=== PATIENT | female | born 1945 | race Two or more races ===

== ENCOUNTER → 2016-06-02 | Day surgery (SDC) | payer MEDICARE, OTHER ==
--- NOTE | 2016-06-01 10:02 | Pre-Procedure Note/Attestation ---
Pre-Procedure Note/Attestation Complete Prior to Procedure Planned Procedure: right Procedure Narrative: 1.CATARACT EXTRACTION WITH PHACO AND PC IOL IMPLANTATION, RIGHT EYE. Indications for Procedure Pre-Operative Diagnosis: 1. CATARACT, RIGHT EYE. Attestation I attest that I discussed the nature of the procedure; its benefits; risks and complications; and alternatives (and the risks and benefits of such alternatives ), prior to the procedure, with the patient (or the patient's legal construction representative). I attest that, if there was a reasonable possibility of needing a blood transfusion, the patient (or the patient's legal construction representative) was given the [facility] standardized written summary, pursuant to the Romario Andrei Blood Safety Act ([place] Health and Safety Code # 1645, as amended). I attest that I re-evaluated the patient just prior to the surgery and that there has been no change in the patient's H&P, except as documented below: TAVO PINEDA Jun 01, 2016 10:02
[~2016-06-02] VITALS: Ht 160 cm; Wt 79.4 kg
[2016-06-02] VITALS (9 sets, daily range): BP systolic 114–150; BP diastolic 57–74
[~2016-06-02] MED LIST: Akten 3.5% 1ml Btl ONE; BSS 15ml BTL ONE; BSS 500ml btl ONE; Carbachol 0.01% Op Soln 1.5ml vial ONE; Dexamethasone 4mg/ml vial ONE; Diclofenac Sod 0.1% Op Soln ONE; DiphenhydrAMINE 50mg/ml Inj IVP PRN; DiphenhydrAMINE 50mg/ml Inj ONE; EPINEPHrine 1mg/1ml Amp ONE; GLUCOSAMINE1000 M1 PO; Gatifloxacin Opth Solution 0.5% ONE; LEVOTHYROXINE100 MCG ORAL; LORAZEPAM1 MG ORAL; LR 1000ml 1,000 ML IVLG SCH; LR 1000ml ONE; Labetalol 5mg/ml 20ml vial IV PRN; Lidocaine 1% MPF 10mg/ml 5ml ONE; NS Irrig 1000ml ONE; Phenylephrine 10% Opth Soln 5ml ONE; Povidone-Iodine 5% opth solution ONE; Sodium Hyaluronate 10 mg/ml 0.85ml ONE; Sterile Water Irrig 1000ml IRRIG ONE; Tetracaine 0.5% Opth Soln ONE; Tropicamide 1% Opth Soln ONE; acetaZOLAMIDE 125mg tab ORAL ONE; fentaNYL 100 mcg/2 mL IV ONE
[2016-06-02] MEDS: Gatifloxacin Opth Solution 0.5% RIGHT EYE SCH ×3 (06:49→07:06)
[2016-06-02] MEDS: Diclofenac Sod 0.1% Op Soln RIGHT EYE SCH ×3 (06:49→07:06)
[2016-06-02] MEDS: Phenylephrine 10% Opth Soln 5ml RIGHT EYE SCH ×3 (06:49→07:06)
[2016-06-02] MEDS: Tropicamide 1% Opth Soln RIGHT EYE SCH ×3 (06:49→07:06)
[2016-06-02] MEDS: Akten 3.5% 1ml Btl RIGHT EYE SCH ×3 (06:50→07:06)
--- NOTE | 2016-06-02 07:28 | Anethesia Preoperative Eval ---
Anesthesia Pre-op PMH/ROS General Date of Evaluation: Jun 02, 2016 Anesthesiologist: Nikhil ASA Score: ASA 2 Mallampati Score Class I : Soft palate, uvula, fauces, pillars visible Class II: Soft palate, uvula, fauces visible Class III: Soft palate, base of uvula visible Class IV: Only hard plate visible Mallampati Classification: Class II Surgeon: Marcello Diagnosis: Right cataractt Surgical Procedure: Right cataract extraction with IOL Anesthesia History: none Family History: no anesthesia problems Allergies: Coded Allergies: PENICILLINS (Verified Allergy, Unknown, 05/29/16) Medications: see eMAR Past Medical History Cardiovascular: Denies: CAD, HTN, [place], arrhythmia, other, valve dz Pulmonary: Denies: COPD, [place]ANCISCO, asthma, other Gastrointestinal/Genitourinary: Denies: CRI, ESRD, GERD, other Neurologic/Psychiatric: Denies: CVA, TIA, dementia, depression/anxiety, other Endocrine: Reports: hypothyroidism, Denies: DM, other, steroids HEENT: Denies: EEK (L), EEK (R), cataract (L), cataract (R), glaucoma, other Hematology/Immune: Denies: DVT, anemia, bleeding disorder, other Musculoskeletal/Integumentary: Reports: OA, Denies: DDD, DJD, RA, edema, other PSxH Narrative: lap saray Anesthesia Pre-op Phys. Exam Physician Exam Last Vital Signs Date Time Temp Pulse Resp B/P Pulse Ox O2 Delivery O2 Flow Rate FiO2 06/02/16 07:01 97.8 64 18 150/74 99 Room Air Constitutional: NAD Cardiovascular: RRR Respiratory: CTA Airway Exam Mallampati Score: Class II MO: full ROM: full Anesthesia Pre-op A/P Labs see chart Studies Pre-op Studies: EKG - sr Risk Assessment & Plan Assessment: ASA II Plan: MAC Status Change Before Surgery: No Pre-Antibiotics Drug: N/A JENNY COLLINS M.D. Jun 02, 2016 07:28
--- NOTE | 2016-06-02 07:28 | Immediate Post-Op Evaluation ---
Immediate Post-Op Evalulation Immediate Post-Op Evalulation Procedure: Right cataract extraction with IOL Date of Evaluation: Jun 02, 2016 Time of Evaluation: 08:09 IV Fluids: 200 Blood Products: 0 Estimated Blood Loss: 0 Urinary Output: 0 Blood Pressure Systolic: 138 Blood Pressure Diastolic: 72 Pulse Rate: 75 Respiratory Rate: 16 O2 Sat by Pulse Oximetry: 98 Temperature (Fahrenheit): 97.4 Pain Score (1-10): 0 Nausea: No Vomiting: No Complications 0 Patient Status: awake, reacts, patent, none Hydration Status: adequate Drug: N/A JENNY COLLINS M.D. Jun 02, 2016 07:28
--- NOTE | 2016-06-02 07:28 | 48 Hour Post Anesthesia Eval ---
Post Anesthesia Evaluation Procedure: Right cataract extraction with IOL Date of Evaluation: Jun 02, 2016 Blood Pressure Systolic: 147 0: 67 Pulse Rate: 71 Respiratory Rate: 16 O2 Sat by Pulse Oximetry: 99 Airway: patent Nausea: No Vomiting: No Pain Intensity: 0 Hydration Status: adequate Cardiopulmonary Status: at baseline Mental Status/LOC: patient returned to baseline Post-Anesthesia Complications: 0 Follow-up care needed: ready to discharge JENNY COLLINS M.D. Jun 02, 2016 07:28
--- NOTE | 2016-06-02 08:10 | Brief Operative Note ---
Immediate Post Operative Note Operative Note Chief Complaint: Blurry visio right eye. difficulty driving and reading Pre-op Diagnosis: 1. CATARACT, RIGHT EYE. Procedure: Cataract extraction with phaco and PC IOL implantation, right eye Post-op Diagnosis: same as pre-op Surgeon: Tavo Armendariz MD. Departure Clerk: None Additional Surgeons: None Anesthesiologist: Dr. Tejeda Anesthesia: MAC Specimen: none Complications: none Condition: stable Estimated Blood Loss: none Drains: none Implant(s) used?: Yes - Monofocal PC IOL implanted in the right eye without complication TAVO ARMENDARIZ Jun 02, 2016 08:10
--- NOTE | 2016-06-02 15:48 | Operative Note - Dictated ---
DATE OF OPERATION: 06/02/2016 FACILITY: [facility]. SURGEON: Abdullahi Armendariz M.D. PHARMACEUTICAL ANALYST: None. ANESTHESIOLOGIST: Dr. Isela Tejeda. ANESTHESIA: Monitored anesthesia care (MAC). PREOPERATIVE DIAGNOSIS: Cataract in the right eye. POSTOPERATIVE DIAGNOSIS: Cataract in the right eye. SURGERY PERFORMED: Cataract extraction with phacoemulsification of posterior chamber intraocular lens implantation in the right eye. INDICATION FOR SURGERY: The patient is a 70-year-old lady with history of gastroesophageal reflux disease (GERD), hypothyroidism, osteoporosis, constipation, insomnia, vitamin D deficiency, obesity, . She is taking medications including Antivert tablet, aspirin 81 mg, calcium 500 mg twice a day, Claritin 10 mg once a day, Compazine tablets 5 mg once a day, levothyroxine 100 mcg, Nexium 40 mg, omeprazole 20 mg, tramadol hydrochloride 50 mg, Tylenol with codeine once a day, vitamin D softgels 1000 units once a day. She is complaining of blurry vision in the right eye. On examination of the right eye, the cornea is clear. Anterior chamber deep and quiet. Pupillary reflexes normal. There is 3+ nuclear sclerosis and 2+ cortical cataract. The funduscopy shows normal optic disc, normal macula, and periphery retina is flat. To improve her vision in the right eye, the cataract has to be removed and posterior chamber intraocular lens has to be implanted. INFORMED CONSENT: The nature of the surgery, risks, benefits, alternatives, and potential complications were explained all in detail to the patient. The potential complications including, but not limited to bleeding, infection, posterior capsular rupture, lens subluxation, flat anterior chamber, iris prolapse, uveitis, corneal edema, macular edema, endophthalmitis, retinal detachment, loss of vision, and even loss of the eye were all explained in detail to the patient. The patient voiced understanding and accepted all the complications. The alternatives including accommodating lenses, multifocal lenses, toric lens, and conventional cataract surgery with limbal relaxing incision for treatment of astigmatism were all explained in detail to the patient in her language Farsi, the patient voiced understanding. The patient elected to have only conventional cataract surgery in the right eye. Then, she signed the consent form, which is in the chart. DESCRIPTION OF SURGERY AND FINDINGS: Following that, the patient was taken to the operation room in a stable condition. Lidocaine gel Akten 3.5% were applied to the conjunctiva of the right eye. IV sedation was given by the anesthesiologist, . After adequate anesthesia and sedation had been achieved, the right eye was prepped and draped in a sterile fashion for intraocular surgery. Following that, a speculum was placed in the right eye. Following that, using a Super Sharp knife, a clear corneal side port was created. A 1% lidocaine without preservative (MPF) was injected into the anterior chamber. Viscoelastic agent Healon was injected into the anterior chamber. Following that, a clear corneal temporal keratotomy was performed with 2.8 mm keratome in the temporal side of the cornea. Following that, viscoelastic agent Healon was injected into the anterior chamber again. Following that, Vision blue was injected under the viscoelastic agent. Following that, a clear new fresh viscoelastic agent Healon was injected into the anterior chamber. Following that under the fresh new viscoelastic agent, an anterior capsulotomy was performed in the fashion of capsulorrhexis beautifully. Following that, all viscoelastic agent was removed from the anterior chamber. Following that, using balanced salt solution, hydrodissection and hydrodelineation was performed. Following that, clear and fresh viscoelastic agent Healon was injected into the anterior chamber to protect endothelium of the cornea. Following that, using the phacoemulsification machine in the fashion of horizontal chop, the nucleus was removed in toto. Following that, the cortical material was removed from the capsular bag using irrigation aspiration unit. Following that, the capsular bag was filled with viscoelastic agent Healon. Following that, a +23 diopter ZCB00 foldable PC IOL with serial #[id number] was injected into the capsular bag. Using a Sinskey hook, the lens was manipulated and put in the proper position. Following that, the viscoelastic agent was removed from the anterior and posterior part of the lens. Following that, the anterior chamber was filled with balanced salt solution and the wound was hydrated with balanced salt solution. Following that, the wound was checked for leakage. There was no leakage. Vigamox eye drops were applied to the conjunctiva of the right eye. The patient tolerated the surgery without complications. At the end of surgery, the eye was patched with a clear sterile fenestrated shield. Following that, the patient was transferred to the recovery room. In the recovery room, 125 mg Diamox was given by mouth stat. Postoperative orders and directions were given to the patient. The patient will be discharged home upon stabilization. The patient will be followed in my office tomorrow morning at 6:30 a.m. Abdullahi Armendariz M.D. DR: Paddy JOB#: [id number] CC: BELA
--- NOTE | 2016-06-02 15:48 | Discharge Summary ---
DATE OF ADMISSION: 06/02/2016 REASON FOR HOSPITALIZATION: Cataract of the right eye. SURGERY PERFORMED: Cataract extraction with phacoemulsification and posterior chamber intraocular lens implantation in the right eye. CONDITION IN THE HOSPITAL: The patient tolerated the procedure well without complications. DISCHARGE CONDITION: The patient was stable at discharge. DISCHARGE MEDICATIONS: 1. Prednisolone 1% q.i.d. one drop right eye. 2. Vigamox eye drops one drop q.i.d., right eye. 3. Ilevro eye drops daily in the right eye. POSTOPERATIVE ORDERS: The patient has to rest at home. No bending. No lifting. No watching TV tonight. Postoperative Followup: The patient will be followed in the office tomorrow morning at 6:30 in the morning. Abdullahi Armendariz M.D. DR: Paddy JOB#: [id number] CC:
== END | disposition home or self-care (01) ==
LOC: SUR 06:25
DX: H25.11 Age-related nuclear cataract, right eye (principal); H25.011 Cortical age-related cataract, right eye; K21.9 Gastro-esophageal reflux disease without esophagitis; E03.9 Hypothyroidism, unspecified; M81.0 Age-related osteoporosis without current pathological fracture; K59.00 Constipation, unspecified; G47.00 Insomnia, unspecified; E55.9 Vitamin D deficiency, unspecified; E66.9 Obesity, unspecified; E78.5 Hyperlipidemia, unspecified; M19.90 Unspecified osteoarthritis, unspecified site; N28.1 Cyst of kidney, acquired; I65.29 Occlusion and stenosis of unspecified carotid artery; Z90.710 Acquired absence of both cervix and uterus; Z90.49 Acquired absence of other specified parts of digestive tract; Z88.0 Allergy status to penicillin; Z79.82 Long term (current) use of aspirin; Z79.891 Long term (current) use of opiate analgesic
CPT/HCPCS: 66984; 82962; J0171; J1100; J1200; J3010; J7120; V2632; 94003; 94150

== ENCOUNTER → 2016-06-09 | Day surgery (SDC) | payer MEDICARE, OTHER ==
--- NOTE | 2016-06-05 11:06 | Pre-Procedure Note/Attestation ---
Pre-Procedure Note/Attestation Complete Prior to Procedure Planned Procedure: left Procedure Narrative: 1.CATARACT EXTRACTION WITH PHACO AND PC IOL IMPLANTATION, LEFT EYE. Indications for Procedure Pre-Operative Diagnosis: 1. CATARACT, LEFT EYE. Attestation I attest that I discussed the nature of the procedure; its benefits; risks and complications; and alternatives (and the risks and benefits of such alternatives ), prior to the procedure, with the patient (or the patient's legal access representative). I attest that, if there was a reasonable possibility of needing a blood transfusion, the patient (or the patient's legal access representative) was given the [facility] standardized written summary, pursuant to the Romario Andrei Blood Safety Act ([place] Health and Safety Code # 1645, as amended). I attest that I re-evaluated the patient just prior to the surgery and that there has been no change in the patient's H&P, except as documented below: TAVO PINEDA Jun 05, 2016 11:06
[2016-06-09] VITALS (10 sets, daily range): BP systolic 114–150; BP diastolic 58–77
[~2016-06-09] VITALS: Ht 160 cm; Wt 79.4 kg
[~2016-06-09] MED LIST changes: -Carbachol 0.01% Op Soln 1.5ml vial ONE; -Tetracaine 0.5% Opth Soln ONE
[2016-06-09] MEDS: Phenylephrine 10% Opth Soln 5ml LEFT EYE SCH ×3 (07:27→07:51)
[2016-06-09] MEDS: Gatifloxacin Opth Solution 0.5% LEFT EYE SCH ×3 (07:28→07:51)
[2016-06-09] MEDS: Akten 3.5% 1ml Btl LEFT EYE SCH ×3 (07:28→07:51)
[2016-06-09] MEDS: Diclofenac Sod 0.1% Op Soln LEFT EYE SCH ×3 (07:28→07:51)
[2016-06-09] MEDS: Tropicamide 1% Opth Soln LEFT EYE SCH ×3 (07:28→07:51)
--- NOTE | 2016-06-09 07:39 | Anethesia Preoperative Eval ---
Anesthesia Pre-op PMH/ROS General Date of Evaluation: Jun 09, 2016 Anesthesiologist: Nikhil ASA Score: ASA 2 Mallampati Score Class I : Soft palate, uvula, fauces, pillars visible Class II: Soft palate, uvula, fauces visible Class III: Soft palate, base of uvula visible Class IV: Only hard plate visible Mallampati Classification: Class II Surgeon: Marcello Diagnosis: Left cataract Surgical Procedure: Left cataract extraction with IOL Family History: no anesthesia problems Allergies: Coded Allergies: PENICILLINS (Verified Allergy, Unknown, 05/29/16) Medications: see eMAR Past Medical History Cardiovascular: Denies: CAD, HTN, [place], arrhythmia, other, valve dz Pulmonary: Denies: COPD, JUAN [place]ANCISCO, asthma, other Gastrointestinal/Genitourinary: Reports: GERD, Denies: CRI, ESRD, other Neurologic/Psychiatric: Denies: CVA, TIA, dementia, depression/anxiety, other Endocrine: Denies: DM, hypothyroidism, other, steroids HEENT: Reports: cataract (L), Denies: HUSLIA (L), HUSLIA (R), cataract (R), glaucoma, other Hematology/Immune: Denies: DVT, anemia, bleeding disorder, other Musculoskeletal/Integumentary: Reports: OA, Denies: DDD, DJD, RA, edema, other PSxH Narrative: lap saray, right cataract Anesthesia Pre-op Phys. Exam Physician Exam see chart Constitutional: NAD Cardiovascular: RRR Respiratory: CTA Airway Exam Mallampati Score: Class II Anesthesia Pre-op A/P Labs see chart Studies Pre-op Studies: EKG - sr Risk Assessment & Plan Assessment: ASA II Plan: MAC Status Change Before Surgery: No Pre-Antibiotics Drug: N/A JENNY COLLINS M.D. Jun 09, 2016 07:39
--- NOTE | 2016-06-09 08:31 | Immediate Post-Op Evaluation ---
Immediate Post-Op Evalulation Immediate Post-Op Evalulation Procedure: Left cataract extraction with IOL Date of Evaluation: Jun 09, 2016 Time of Evaluation: 09:55 IV Fluids: 300 Blood Products: 0 Estimated Blood Loss: 0 Urinary Output: 0 Blood Pressure Systolic: 149 Blood Pressure Diastolic: 77 Pulse Rate: 80 Respiratory Rate: 17 O2 Sat by Pulse Oximetry: 99 Temperature (Fahrenheit): 97.3 Pain Score (1-10): 0 Nausea: No Vomiting: No Complications 0 Patient Status: awake, reacts, patent, none Hydration Status: adequate Drug: N/A JENNY COLLINS M.D. Jun 09, 2016 08:31
--- NOTE | 2016-06-09 08:33 | 48 Hour Post Anesthesia Eval ---
Post Anesthesia Evaluation Procedure: Left cataract extraction with IOL Date of Evaluation: Jun 09, 2016 Blood Pressure Systolic: 149 0: 73 Pulse Rate: 73 Respiratory Rate: 16 O2 Sat by Pulse Oximetry: 100 Airway: patent Nausea: No Vomiting: No Pain Intensity: 0 Hydration Status: adequate Cardiopulmonary Status: At baaseline Mental Status/LOC: patient returned to baseline Post-Anesthesia Complications: 0 Follow-up care needed: ready to discharge JENNY COLLINS M.D. Jun 09, 2016 08:33
--- NOTE | 2016-06-09 09:54 | Brief Operative Note ---
Immediate Post Operative Note Operative Note Chief Complaint: blurry vision, left eye. Difficulty driving and reading Pre-op Diagnosis: 1. CATARACT, LEFT EYE. Procedure: Cataract extraction with phaco and PC IOl implantation, left eye Post-op Diagnosis: same as pre-op Surgeon: Tavo Armendariz MD. Stuffing Machine Operator: None Additional Surgeons: None Anesthesiologist: Dr. Tejeda Anesthesia: MAC Specimen: none Complications: none Condition: stable Estimated Blood Loss: none Drains: none Implant(s) used?: Yes - Monofocal PC IOl implanted in the left eye without complication TAVO ARMENDARIZ Jun 09, 2016 09:54
--- NOTE | 2016-06-09 20:06 | Discharge Summary ---
Discharge Summary Discharge Summary Discharge Summary DATE OF ADMISSION:06/09/2016 DATE OF DISCHARGE:06/09/2016 REASON FOR HOSPITALIZATION: Cataract left eye SURGERY PERFORMED: Cataract extraction with phaco and PC IOL implantation, left eye CONDITION IN THE HOSPITAL:The patient tolerated the surgery without complications. DISCHARGE CONDITION: The patient was stable at discharge. DISCHARGE MEDICATIONS: 1. Vigamox eye drops one drop q.i.d, 2. Prednisolone one drop q.i.d, 3. Ilevro, one drop qd. POSTOPERATIVE ORDERS: The patient has to rest at home. No bending, No lifting, No watching Television tonight. POSTOPERATIVE FOLLOW UP: The patient will be followed in my office tomorrow morning at 7 o'clock. TAVO PINEDA Jun 09, 2016 20:06
--- NOTE | 2016-06-09 20:21 | Operative Note - PDOC ---
Operative Note Operative Note Operative Report DATE OF OPERATION: 06/09/2016 FACILITY: [facility] SURGEON: Abdullahi Armendariz PLASTIC CARD GRADER CARDROOM: None ANESTHESIOLOGIST: Dr. Tejeda ANESTHESIA: Monitored anesthesia care (MAC) PREOPERATIVE DIAGNOSES: 1. Cataract, left eye. POSTOPERATIVE DIAGNOSES: 1. Cataract, left eye. SURGERY PERFORMED: 1. Cataract extraction with phacoemulsification and posteriro chamber intraocular lens implantation in the left eye. INDICATION FOR SURGERY: The patient is a 70- year-old woman with history of high blood pressure, GERD, hypothyroidism, osteopenia, constipation, insomnia, vitaminD deficiency and obesity. She is taking Antivert tablet, aspirin 81 mg, [id number] myx2 claritin, compazin, levothyroxin, nexium, omeprazole, tylenol, vit D. She doesn't smoke doesn't drink and no allergy to medications. He is complaining of blurry vision in the left eye. She had cataract surgery in the right eye last week. She is happy with the result. On examination of the Left eye., the cornea is clear. anterior chamber is clean and quiet, but is shallow. The pupillary reflex is normal. There is no RAPD. There is 4 nuclear sclerosis and 2 cortical cataract. The fundus shows normal optic disc, normal macula, and periphery retina is flat. To improve his vision int he left eye, the cataract has to be removed and posterior chamber intraocular lens has to be implanted. INFORMED CONSENT: The nature of the surgery, risks benefits, alternatives, and potential complications were explained all in detail to the patient. The potential complications including. But not limited to bleeding, infection, posterior capsular rupture,lens subluxation, flat anterior chamber,iris prolapse , uveitis, corneal edema, macular edema, endophthalmitis, retinal detachment, loss of vision and even loss of the eye were all explained in detail to the patient. The patient voiced understanding and accepted all the complications.The alternatives including accommodating lens, multifocal lens, toric lens, and conventional cataract surgery with limbal relaxing incision (LRI ) for treatment of astigmatism were all explained in detail to the patient who voiced understanding. The patient elected to have cataract surgery with insertion of the monofocal lens and limbal relaxing incision for astigmatism. Then, she signed the consent from,which is in the chart. DESCRIPTION OF SURGERY AND FINDINGS: Following hat, the patient was taken to the operation room in a stable condition. Lidocaine gel Akten 3.5% were applied to the conjunctiva of the left eye. Anesthesia was given by the anesthesiologist , Dr. Tejeda. After adequate anesthesia and sedation had been achieved, the left eye was prepped and draped in the usual and sterile fashion for intraocular surgery.Following that, a speculum was placed in the left eye. Following that, before the patient was taken to the operation room, the 180 and 90 meridian of the cornea was marked. In the operation room, using a corneal marker and marking pen, the steep meridian of the cornea was marked. Following that, using a rickey knife, two parallel incisions was placed on the steep meridian of the cornea to treat the patients astigmatism. Following that, using a super sharp knife, a clear corneal side port was created. Following that 1% lidocaine without preservative (MPF) was injected into the anterior chamber.Viscoelastic agent Healon was injected into the anterior chamber. Following that, a clear corneal temporal keratotomy was performed with a 2.8 mm keratome. Following that, viscoelastic agent was injected into the anterior chamber again. Following that, Vision blue was injected under the viscoelastic agent to stain the anterior capsule. Following that, a clear fresh viscoelastic agent was injected into the anterior chamber again. Under the viscoelastic agent , an anterior capsulotomy was performed in the fashion of capsulorrhexis beautifully. Following that viscoelastic agent was removed from the anterior chamber. Following that, using a balanced salt solution hydrodissection and hydrodelineation was performed and the nucleus was freed. Following that, the viscoelastic agent was injected into the anterior chamber again to protect the endothelium of the cornea. Following that, using phacoemulsification machine inthe fashion of horizontal chop, the nucleus was removed in toto. Following that, the cortical material was removed from the capsular bag with irrigation aspiration unit and the capsular bag was polished.Following that, the capsular bag was filled with viscoelastic agent. Following that, a+18.0 18 diopter , ZCB00 foldable PCIOL was injected into the capsular bag. Using a Sinskey hook, the lens was manipulated within the proper position.Following that, viscoelastic agent was removed from the anterior and posterior part of the lens.The anterior chamber was filled with balanced salt solution. Following that , the wound was hydrated with balanced salt solution and the wound was checked for leakage. There was no leakage. Following that, the wound was hydrated and the wound was checked for leakage. There was no leakage. Following that, Vigamox eye drops were applied to the conjuctiva of the left eye. The patient tolerated the surgery without complications. At the end of the surgery, the eye was patched with a clear sterile fenestrated shield. Following that, the patient was transferred to the recovery room. In the recovery room, 125mg Diamox was given by mouth stat. Postoperative orders and directions were given to the patient. The patient will be discharged home upon stabilization. The patient will be followed in my office tomorrow morning at 7 o 'clock. MD EDWIN Bowman JOHN Jun 09, 2016 20:21
--- NOTE | 2016-06-11 10:09 | Pre-op HX & Phy Repo 2 SIG ---
DATE OF ADMISSION: 06/09/2016 PRESURGICAL INTERNAL MEDICINE HISTORY AND PHYSICAL: REASON FOR EVALUATION: I was asked by Dr. Abdullahi Armendariz to see this 70-year-old female, who is going for elective surgery on the left eye. The patient has cataract, left eye. Please see Dr. Armendariz History and Physical. The patient was evaluated. Chart was reviewed. PAST MEDICAL HISTORY AND REVIEW OF SYSTEMS: Remarkable for hypothyroidism, neck pain, degenerative joint disease of knee. No history of heart attack. Denies history of hypertension. No stroke or seizures. Denies history of diabetes mellitus. Denied respiratory problem and no gastrointestinal bleeding. PAST SURGICAL HISTORY: FAMILY HISTORY: Father from appendicitis and mother of old age. ALLERGIES: To penicillin. PRESENT MEDICATIONS: Levothyroxine, Celebrex, naproxen, fish oil, vitamin D, vitamin E, and vitamin A. HABITS: Denies tobacco or alcohol use. No street drugs. PHYSICAL EXAMINATION: GENERAL: Alert, well-developed, well-nourished female in her 70s, in no acute distress. VITAL SIGNS: Blood pressure 158/76, temperature 96.7, pulse 72, respirations 18, and O2 saturation 99% on room air. SKIN: Warm and dry. No cyanosis, no diaphoresis. No rashes. LYMPH NODES: Not enlarged. HEENT: Head normocephalic. Eyes, full description per Dr. Abdullahi Armendariz. Nose clear, no discharge. Mouth, wears dentures. NECK: Supple. No jugular venous distention. Carotid artery +2. Trachea midline. CHEST: No deformity or asymmetry. LUNGS: Clear on auscultation and percussion. No rales or rhonchi. No wheezing. HEART: Sinus rhythm. No ectopy. No murmur. No S3 or S4. Rate 72. ABDOMEN: Soft, benign. No rebound. No organomegaly. No liver enlargement. EXTREMITIES: Degenerative joint disease of knee. No edema. No calf tenderness. GENITOURINARY TRACT: Denies dysuria. No CVA tenderness. NERVOUS SYSTEM: No asymmetry. No tremor. No nystagmus. Laboratory And Diagnostic Data: ECG, sinus, probable septal MN. The patient did not eat or drink from last night, at 11:30 p.m. last meal. Laboratory from outside in normal limits. IMPRESSION: 1. Cataract, left eye. 2. Hypothyroidism. 3. Degenerative joint disease of knee. 4. Septal myocardial infarction by EKG. PLAN: Cataract extraction, left eye with intraocular lens implant per Dr. Abdullahi Armendariz. CONCLUSION: The patient's vital signs stable. Laboratory in normal limits. She did not eat or drink from last night. 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 The patient is asymptomatic event. The patient's condition optimized for surgery. Thank you very much, Dr. Armendariz, for privilege to participate in presurgical care of this interesting patient. Jorge Luis Eduardo M.D. DR: Lyndsey JOB#: [id number] CC:
== END | disposition home or self-care (01) ==
LOC: SUR 06:58
DX: H25.12 Age-related nuclear cataract, left eye (principal); H25.012 Cortical age-related cataract, left eye; E03.9 Hypothyroidism, unspecified; M17.9 Osteoarthritis of knee, unspecified; K21.9 Gastro-esophageal reflux disease without esophagitis; M85.80 Other specified disorders of bone density and structure, unspecified site; K59.00 Constipation, unspecified; G47.00 Insomnia, unspecified; E55.9 Vitamin D deficiency, unspecified; E66.9 Obesity, unspecified; I25.2 Old myocardial infarction; M54.9 Dorsalgia, unspecified; M54.2 Cervicalgia; Z88.0 Allergy status to penicillin; Z90.49 Acquired absence of other specified parts of digestive tract
CPT/HCPCS: 66984; J0171; J1100; J1200; J3010; J7120; V2632; 94003; 94150